=== PATIENT | male | born 1955 | race Caucasian/White ===

== ENCOUNTER 2018-02-20 06:33 | Inpatient (IN) | payer MEDICAID ==
[2018-02-17 10:53] VITALS: BP 156/92
[~2018-02-20] VITALS: Ht 185.4 cm; Wt 98.6 kg
[~2018-02-20 06:33] MED LIST: AMIO200T42 PO; METO25TA35 PO; RIVA20TA PO
[2018-02-20] MEDS ORDERED: SODIUM CHLORIDE 0.9% 1,000 ML IV SCH ×2 (06:56→07:00)
[2018-02-20] MEDS ORDERED: ISOPROTERENOL 0.2MG/ML, 5ML ONE (07:30)
[2018-02-20] MEDS ORDERED: LIDOCAINE-MPF 2% ,5ML ONE (07:30)
[2018-02-20] MEDS ORDERED: HEPARIN 1,000 UNITS/ML, 10ML ONE (07:30)
[2018-02-20] MEDS ORDERED: PROTAMINE SULFATE 10 MG/ML, 5ML ONE (07:30)
[2018-02-20] MEDS ORDERED: MIDAZOLAM 1 MG/ML, 2ML ONE (07:53)
[2018-02-20] MEDS ORDERED: FENTANYL PF 250 MCG/5ML ONE (07:54)
[2018-02-20] MEDS ORDERED: ROCURONIUM 10 MG/ML,10ML ONE (08:02)
[2018-02-20] MEDS ORDERED: EPHEDRINE 50 MG/ML, 1ML ONE (08:02)
[2018-02-20] MEDS ORDERED: PROPOFOL 10 MG/ML, 20ML ONE (08:02)
[2018-02-20] MEDS ORDERED: SUCCINYLCHOLINE 20 MG/ML, 10ML ONE (08:02)
[2018-02-20] MEDS ORDERED: DEXAMETHASONE 4 MG/ML, 5ML ONE (08:02)
[2018-02-20] MEDS ORDERED: ZOLPIDEM 5MG TABLET PO PRN (11:00)
[2018-02-20] MEDS ORDERED: ACETAMINOPHEN 325 MG TABLET PO PRN (11:00)
[2018-02-20] MEDS ORDERED: OXYcodone 5 MG/5 ML ORAL.SOL UDC PO PRN (11:30)
[2018-02-20] MEDS ORDERED: SCOPOLAMINE PATCH, 1.5MG PATCH.TD72 TD PRN (11:30)
[2018-02-20] MEDS ORDERED: LABETALOL 5MG/ML, 20ML IV PRN (11:30)
[2018-02-20] MEDS ORDERED: ONDANSETRON ODT 8 MG PO PRN (11:30)
[2018-02-20] MEDS ORDERED: FENTANYL PF 100 MCG/2ML IV PRN (11:30)
[2018-02-20] MEDS ORDERED: PROMETHAZINE 25 MG/ML, 1ML IV PRN (11:30)
[2018-02-20] MEDS ORDERED: ALBUTEROL SULFATE 2.5 MG/3 ML NPPB PRN (11:30)
[2018-02-20] MEDS ORDERED: hydrALAzine 20 MG/ML, 1ML IV PRN (11:30)
[2018-02-20] MEDS ORDERED: PROMETHAZINE 12.5 MG SUPP PR PRN (11:30)
[2018-02-20] MEDS ORDERED: MIDAZOLAM 1 MG/ML, 2ML IV PRN (11:30)
[2018-02-20] MEDS ORDERED: MORPHINE SULFATE 4 MG/ML, 1ML IVPush PRN (11:30)
[2018-02-20] MEDS ORDERED: MEPERIDINE/PF 25MG/0.5ML IVPush PRN (11:30)
[2018-02-20] MEDS: RIVAROXABAN 20 MG TABLET PO SCH ×2 (12:00→21:53)
[2018-02-20 15:00] VITALS: BP 137/89
[2018-02-20] MEDS: AMIODARONE 200 MG TABLET PO SCH ×2 (17:55→21:52)
[2018-02-20 20:10] VITALS: BP 143/83
[2018-02-20] MEDS ORDERED: RIVAROXABAN 20 MG TABLET PO SCH (21:00)
[2018-02-20] MEDS: METOPROLOL TARTRATE 25 MG TABLET PO SCH (22:01)
[2018-02-21 01:49] VITALS: BP 133/87
[2018-02-21 06:55] VITALS: BP 136/87
[2018-02-21] MEDS: AMIODARONE 200 MG TABLET PO SCH ×3 (08:32→20:39)
[2018-02-21] MEDS: METOPROLOL TARTRATE 25 MG TABLET PO SCH ×2 (08:32→20:39)
[2018-02-21 13:30] VITALS: BP 150/101
[2018-02-21 19:21] VITALS: BP 145/75
[2018-02-21] MEDS: RIVAROXABAN 20 MG TABLET PO SCH (20:38)
[2018-02-22 03:54] VITALS: BP 142/81
[2018-02-22 06:55] VITALS: BP 142/83
[2018-02-22 10:19] VITALS: BP 166/95
[2018-02-22] MEDS: AMIODARONE 200 MG TABLET PO SCH ×2 (10:20→15:25)
[2018-02-22] MEDS: METOPROLOL TARTRATE 25 MG TABLET PO SCH (10:21)
[2018-02-22] MEDS ORDERED: AMIO200T42 PO (12:03)
[2018-02-22 15:24] VITALS: BP 138/86
== END 2018-02-22 18:54 | disposition home or self-care (01) | DRG 274 ==
LOC: CACL 06:33 → ORIP 10:37 → 5SO 12:46
PROVIDERS: ADMIT Internal Medicine Cardiovascular Disease; ATTEND Internal Medicine Cardiovascular Disease
PROC: 02583ZZ Destruction of Conduction Mechanism, Percutaneous Approach (ICD-10-PCS; 2018-02-20)
PROC: 02K83ZZ Map Conduction Mechanism, Percutaneous Approach (ICD-10-PCS; 2018-02-20)
PROC: 4A023FZ Measurement of Cardiac Rhythm, Percutaneous Approach (ICD-10-PCS; 2018-02-20)
PROC: 4A0234Z Measurement of Cardiac Electrical Activity, Percutaneous Approach (ICD-10-PCS; principal; 2018-02-20 08:00)
DX: I48.1 Persistent atrial fibrillation (principal); D68.69 Other thrombophilia; I27.20 Pulmonary hypertension, unspecified; E66.9 Obesity, unspecified; I08.1 Rheumatic disorders of both mitral and tricuspid valves; I10 Essential (primary) hypertension; Z87.891 Personal history of nicotine dependence; Z68.28 Body mass index [BMI] 28.0-28.9, adult
CPT/HCPCS: 85347; 93005; 93306; 93312; 93321; 93325; 93613; 93656; 93662; C1732; C1766; C1893; C1894; J1100; J1644; J2250; J2704; J2720; J3010; J3490; C1730; C1759; J0330